=== PATIENT | female | born 1965 | race Caucasian/White ===

== ENCOUNTER 2017-10-20 09:47 | Day surgery (SDC) | payer OTHER ==
[~2017-10-20] VITALS: Ht 160 cm; Wt 80.7 kg
[~2017-10-20 09:47] MED LIST: CETI10TA; ESTR1CRE VA; IBUP80TA
[2017-10-20] MEDS ORDERED: LR 1,000 ML IV ONE (10:00)
[2017-10-20] MEDS ORDERED: AMPICILLIN SOD 2 GM in APPROPRIATE DILUENT 20 ML IV ONE (10:00)
[2017-10-20 10:06] LABS: MEAN CORPUSCULAR HGB CONC 32.9 g/dl (32.0-36.5); MEAN CORPUSCULAR VOLUME 88.1 fl (80.0-96.0); PLATELET COUNT, AUTOMATED 203 10^3/uL (150-450); RED CELL DISTRIBUTION WIDTH 13.7 % (11.5-14.5)
[2017-10-20] MEDS ORDERED: GENTAMICIN 80 MG in APPROPRIATE DILUENT 1 EA IV ONE (10:15)
[2017-10-20] MEDS ORDERED: ROCURONIUM BROMIDE 50 MG/5 ML VIAL As Ordered ONE (13:20)
[2017-10-20] MEDS ORDERED: MIDAZOLAM INJ 2 MG/2 ML VIAL (J2250) As Ordered ONE (13:20)
[2017-10-20] MEDS ORDERED: ONDANSETRON 4MG/2ML VIAL (J2405) As Ordered ONE ×2 (13:20→14:45)
[2017-10-20] MEDS ORDERED: dexameTHASONE 4 MG/ML 1ML VIAL (J1100) As Ordered ONE ×2 (13:20→14:44)
[2017-10-20] MEDS ORDERED: PROPOFOL 200 MG/20 ML VIAL As Ordered ONE ×3 (13:20→14:44)
[2017-10-20] MEDS ORDERED: LIDOCAINE 2% INJ 100 MG/5 ML SDV (FOR ANES.) As Ordered ONE ×2 (13:20→14:45)
[2017-10-20] MEDS ORDERED: fentaNYL 250 MCG/5 ML INJECTION (J3010) As Ordered ONE (13:20)
[2017-10-20] MEDS ORDERED: PHENYLephrine HCL 500 MCG/5 ML (100MCG/ML) SYRINGE (J2370) As Ordered ONE (13:26)
[2017-10-20] MEDS ORDERED: METOCLOPRAMIDE INJ 10MG/2ML VIAL (J2765) As Ordered ONE ×2 (13:42→14:45)
[2017-10-20] MEDS ORDERED: OXYC1TAB23 PO (14:35)
[2017-10-20] MEDS ORDERED: KETOROLAC 60 MG/2 ML VIAL (J1885) As Ordered ONE (14:45)
[2017-10-20] MEDS ORDERED: LR 1,000 ML IV SCH ×2 (16:00)
[2017-10-20] MEDS ORDERED: PERCOCET 5MG/325MG TAB PO PRN ×3 (16:00)
[2017-10-20] MEDS ORDERED: fentaNYL 100 MCG/2 ML INJECTION (J3010) IV PRN (16:00)
[2017-10-20] MEDS ORDERED: ONDANSETRON 4MG/2ML VIAL (J2405) IV PRN (16:00)
[2017-10-20] MEDS ORDERED: HYDROmorphone HCL 1 MG/ML SYRINGE (J1170) IV PRN (16:00)
[2017-10-20 16:35] VITALS: BP 131/80
--- NOTE | 2017-10-23 08:03 | RO ---
DATE OF PROCEDURE: 10/20/2017 PREPROCEDURE DIAGNOSIS: Symptomatic cystocele. POSTPROCEDURE DIAGNOSIS: Symptomatic cystocele. PROCEDURE: Anterior vaginal repair. Cystoscopy. SURGEON: Dr. Guzman Callejas [place] DRIVER: Dr. Padmaja Youssef ANESTHESIA: General endotracheal. ESTIMATED BLOOD LOSS: 50 mL. URINE OUTPUT: 50 mL. FINDINGS: Grade 3 to 4 cystocele adequate apical support minimal rectocele. She had bilateral ureteral jets identified on cystoscopy with no evidence of injury to the bladder. OPERATIVE SUMMARY: The patient was taken to operating room where general endotracheal anesthesia was induced. She was prepped and draped in a sterile fashion in the dorsal lithotomy position. The upper anterior vagina was grasped bilaterally with Allis clamps, incision was made in the midline with Metzenbaum scissors. The plane between the vagina mucosa and the bladder was dissected sharply with Metzenbaum scissors. The bladder was dissected off the vaginal mucosa with a combination of blunt and sharp dissection. Three interrupted #2-0 Vicryl sutures were placed bilaterally to plicate the bladder, these were tied into place elevating the bladder. Excess vaginal mucosa was excised was using Morales scissors. Vaginal mucosa was closed with #2-0 Vicryl in a running fashion. Cystoscopy was performed using a 70 degree cystoscope. Bilateral ureteral jets were identified. There was no evidence of injury to the bladder. The cystoscope was removed. Sponge, instruments, and needle counts were correct. The patient was extubated and went to the recovery room in stable condition.
== END 2017-10-20 16:50 | disposition home or self-care (01) ==
LOC: M SDC 09:47
PROVIDERS: ATTEND Specialist
DX: N81.10 Cystocele, unspecified (principal); Q22.1 Congenital pulmonary valve stenosis; Q21.1 Atrial septal defect; T88.59XD Other complications of anesthesia, subsequent encounter; I49.9 Cardiac arrhythmia, unspecified; Z79.899 Other long term (current) drug therapy; Z90.710 Acquired absence of both cervix and uterus
CPT/HCPCS: 36415; 57240; 85027; 88302; J1100; J1580; J1885; J2250; J2405; J2765; J3010

== ENCOUNTER → 2018-07-20 | Outpatient (CLI) | payer OTHER | LOC: M RAD 17:17 | DX: R10.32 Left lower quadrant pain (principal); Z82.71 Family history of polycystic kidney; Z90.49 Acquired absence of other specified parts of digestive tract; Z90.710 Acquired absence of both cervix and uterus | CPT/HCPCS: 74176 ==

== ENCOUNTER → 2021-04-05 | Outpatient (CLI) | payer OTHER ==
[~2021-04-05] MED LIST changes: +LIDOCAINE 1% MDV 20ML VIAL As Ordered ONE; +OXYC1TAB23 PO; +TRIAMCINOLONE ACETONIDE SUSP 40 MG/ML VIAL (J3301) As Ordered ONE
--- NOTE | 2021-04-05 15:00 | REP ---
INDICATION: BICIPITAL TENDONITIS LEFT SHOULDER.. COMPARISON: None. TECHNIQUE: The procedure was performed by FELECIA Mario, under the direct supervision of Dr. Wilder. The risks and benefits of the procedure were explained to the patient and an informed consent was obtained both verbally and written. Directly prior to the start of the procedure a formal time-out was completed in the procedure room. FINDINGS: Using ultrasound guidance the left biceps tendon was localized. The skin was prepped and draped in a sterile fashion. A 25 gauge needle was inserted and as it was advanced to the left biceps tendon sheath, approximately 2 mL of lidocaine was injected as a local anesthetic. 3.5 mL of a solution containing 30 mL 1% lidocaine 10 mg/ml and 0.5 mL Kenalog 40 milligrams/milliliter was injected into the tendon sheath. The needle was removed and hemostasis was achieved. The patient tolerated the procedure well and there were no immediate complications. After the appropriate amount of monitored convalescence the patient was discharged from the department. IMPRESSION: 1. Ultrasound-guided left biceps tendon sheath injection injection. <Electronically signed by Ruchi Monge > 04/05/21 [id number] <Electronically signed by Alexandr Wilder > 04/05/21 [id number]
== END ==
LOC: M IRPRO 10:33
PROVIDERS: ATTEND Physician Assistant
DX: M25.512 Pain in left shoulder (principal)
CPT/HCPCS: 20550; 76942; J3301

== ENCOUNTER → 2021-10-20 | Outpatient (CLI) | payer OTHER ==
[~2021-10-20] MED LIST changes: +ISOVUE-300 61% 50ML VIAL As Ordered ONE
--- NOTE | 2021-10-20 19:47 | REP ---
INDICATION: BICIPITAL TENDINITIS LT SHOULDER. COMPARISON: None. TECHNIQUE: The procedure was performed under the direct supervision of Dr. Lofton. The benefits and risks including but not limited to pain infection bleeding and anaphylaxis were explained to the patient and informed consent was obtained. The left glenohumeral joint space was localized using fluoroscopic guidance. The skin was prepped and draped in a sterile fashion. 1% lidocaine was used as a local anesthetic. Using fluoroscopic guidance, and last image hold technology, a 22 gauge spinal needle was inserted and advanced into the joint. 1 mL of Isovue-300 was injected to verify placement. 6 mL of a solution containing 5 mL of 1% lidocaine and 1 mL of Kenalog 40 mg was injected. The needle was then removed. Estimated blood loss: Less than 1 mL. The patient tolerated the procedure well and there were no immediate complications. Less than 6 seconds of fluoroscopy time was utilized for this procedure. FINDINGS: None IMPRESSION: Fluoro guidance for left shoulder injection. <Electronically signed by Lucas Haque > 10/20/21 [id number] <Electronically signed by Compa Lofton > 10/20/21 1949
== END ==
LOC: M RADPRO 10:38
PROVIDERS: ATTEND Physician Assistant
DX: M75.22 Bicipital tendinitis, left shoulder (principal)
CPT/HCPCS: 20610; 77002; J3301; Q9967

== ENCOUNTER → 2022-02-04 | Outpatient (CLI) | payer OTHER | LOC: M RADPRO 12:37 | PROVIDERS: ATTEND Physician Assistant | DX: M75.22 Bicipital tendinitis, left shoulder (principal) | CPT/HCPCS: 20610; 77002; J3301; Q9967 ==

== ENCOUNTER → 2022-03-09 | Outpatient (REF) | payer OTHER ==
[~2022-03-09] MED LIST changes: -ISOVUE-300 61% 50ML VIAL As Ordered ONE; -LIDOCAINE 1% MDV 20ML VIAL As Ordered ONE; -TRIAMCINOLONE ACETONIDE SUSP 40 MG/ML VIAL (J3301) As Ordered ONE
== END ==
LOC: M PLALAB 09:24
PROVIDERS: ATTEND Advanced Practice Midwife
DX: Z53.9 Procedure and treatment not carried out, unspecified reason (principal); E16.2 Hypoglycemia, unspecified

== ENCOUNTER → 2022-06-16 | Outpatient (CLI) | payer OTHER ==
[~2022-06-16] MED LIST changes: +ISOVUE-300 61% 5ML SYRINGE As Ordered ONE; +LIDOCAINE 1% MDV 20ML VIAL As Ordered ONE; +TRIAMCINOLONE ACETONIDE SUSP 40 MG/ML VIAL (J3301) As Ordered ONE
== END ==
LOC: M RADPRO 14:23
PROVIDERS: ATTEND Physician Assistant
DX: M75.32 Calcific tendinitis of left shoulder (principal)
CPT/HCPCS: 20610; 76000; J3301; Q9967

== ENCOUNTER → 2022-07-22 | Outpatient (CLI) | payer OTHER ==
[~2022-07-22] MED LIST changes: -ISOVUE-300 61% 5ML SYRINGE As Ordered ONE; -LIDOCAINE 1% MDV 20ML VIAL As Ordered ONE; -TRIAMCINOLONE ACETONIDE SUSP 40 MG/ML VIAL (J3301) As Ordered ONE
== END ==
LOC: M CARPUL 12:52
PROVIDERS: ATTEND Physician Assistant
DX: R06.02 Shortness of breath (principal)

== ENCOUNTER → 2022-12-02 | Outpatient (CLI) | payer OTHER ==
[~2022-12-02] MED LIST changes: +ISOVUE-300 61% 100ML VIAL ONE; +LIDOCAINE 1% MDV 20ML VIAL ONE; +TRIAMCINOLONE ACETONIDE SUSP 40MG/ML 1ML VIAL ONE
== END ==
LOC: M PLAIMG 13:11
PROVIDERS: ATTEND Physician Assistant
DX: M75.32 Calcific tendinitis of left shoulder (principal)

== ENCOUNTER → 2023-11-15 | Outpatient (REF) ==
[~2023-11-15] MED LIST changes: -ISOVUE-300 61% 100ML VIAL ONE; -LIDOCAINE 1% MDV 20ML VIAL ONE; -TRIAMCINOLONE ACETONIDE SUSP 40MG/ML 1ML VIAL ONE
== END ==
LOC: M EMP 07:48
PROVIDERS: ATTEND Family Medicine
DX: Z11.52 Encounter for screening for COVID-19 (principal)

== ENCOUNTER 2024-02-26 09:45 | Day surgery (SDC) | payer OTHER ==
[~2024-02-26] VITALS: Ht 162.6 cm; Wt 83.9 kg
[~2024-02-26 09:45] MED LIST changes: +CELE1CAP99 PO; +CETI-24 PO; +ESTR1TAB PO; +KETOROLAC 60MG 2ML VIAL As Ordered ONE; +LIDOCAINE 2% 100MG/5ML SDV (FOR ANES.) As Ordered ONE; +MIDAZOLAM INJ 2MG/2ML VIAL As Ordered ONE; +ONDANSETRON 4MG 2ML VIAL As Ordered ONE; +SIMV-252 PO; +SYNT88TA2 PO; +VASOPRESSIN INJ 20UNITS/ML 1ML VIAL As Ordered ONE; +fentaNYL 100 MCG/2 ML INJECTION As Ordered ONE; +propofoL 200 MG/20 ML VIAL As Ordered ONE
[2024-02-26] MEDS: LR 1,000 ML IV SCH (10:36)
[2024-02-26 10:57] LABS: HEMATOCRIT 44.1 % (36.0-47.0); HEMOGLOBIN 14.4 g/dl (12.0-15.5); MEAN CORPUSCULAR HEMOGLOBIN 28.6 pg (27.0-33.0); MEAN CORPUSCULAR HGB CONC 32.7 g/dl (32.0-36.5); MEAN CORPUSCULAR VOLUME 87.7 fl (80.0-96.0); PLATELET COUNT, AUTOMATED 144 10^3/uL (150-450); RED BLOOD COUNT 5.03 10^6/uL (4.00-5.40); WHITE BLOOD COUNT 6.6 10^3/uL (4.0-10.0)
[2024-02-26] MEDS: ceFAZolin SOD 2 GM in IV 1 EA IV ONE (11:47)
[2024-02-26] MEDS ORDERED: ACETAMINOPHEN 1000MG 100ML IV BAG As Ordered ONE (11:55)
[2024-02-26] MEDS ORDERED: LR 1,000 ML IV SCH ×2 (13:15→14:55)
[2024-02-26] MEDS ORDERED: HYDROMORPHONE HCL 0.5 MG/ 0.5 ML SYRINGE IV PRN (13:15)
[2024-02-26] MEDS ORDERED: fentaNYL 100 MCG/2 ML INJECTION IV PRN (13:15)
[2024-02-26] MEDS: ONDANSETRON 4MG 2ML VIAL IV PRN (14:01)
[2024-02-26] MEDS: oxyCODONE 5MG TAB PO PRN (14:02)
[2024-02-26 14:45] VITALS: BP 133/68; TEMP 97.4; O2SAT 99
[2024-02-26] MEDS ORDERED: PERCOCET 5MG/325MG TAB PO PRN (14:55)
== END 2024-02-26 14:59 | disposition home or self-care (01) ==
LOC: M SDC 09:45
PROVIDERS: ATTEND Specialist
DX: N81.6 Rectocele (principal); E03.9 Hypothyroidism, unspecified; F41.9 Anxiety disorder, unspecified; F32.A Depression, unspecified; Z79.899 Other long term (current) drug therapy
CPT/HCPCS: 36415; 57250; 85027; 86850; 86900; 86901; 88302; J0131; J0665; J0690; J1100; J1885; J2250; J2405; J3010